=== PATIENT | male | born 1995 | race African-American/Black ===

== ENCOUNTER 2017-06-28 18:05 | Emergency (ER) | payer MEDICAID ==
[~2017-06-28] VITALS: Ht 177.8 cm; Wt 84.0 kg
[2017-06-28] MEDS ORDERED: ACETAMINOPHEN 500MG TABLET PO NR (20:45)
[2017-06-28 21:45] VITALS: BP 131/72
== END 2017-06-28 21:45 | disposition home or self-care (01) ==
LOC: ER 18:31
DX: S16.1XXA Strain of muscle, fascia and tendon at neck level, initial encounter (principal); S39.012A Strain of muscle, fascia and tendon of lower back, initial encounter; S01.111A Laceration without foreign body of right eyelid and periocular area, initial encounter; M25.511 Pain in right shoulder; V43.62XA Car passenger injured in collision with other type car in traffic accident, initial encounter; Y93.89 Activity, other specified; Y92.488 Other paved roadways as the place of occurrence of the external cause
CPT/HCPCS: 70450; 72100; 72125; 73030; 99284